=== PATIENT | male | born 1945 | race Caucasian/White ===

== ENCOUNTER 2021-07-14 07:26 | Day surgery (SDC) | payer OTHER, SELFPAY ==
[~2021-07-14] VITALS: Ht 182.9 cm; Wt 83.9 kg
[~2021-07-14 07:26] MED LIST: CEFAZOLIN SOD 2 GM in D5W 50 ML IV ONE
[2021-07-14] MEDS ORDERED: PHENYLEPHRINE HCL 10 MG/ML VIAL (NEOSYNEPHRINE) IV ONE (09:25)
[2021-07-14] MEDS ORDERED: BUPIVACAINE /EPINEPHRINE/PF 0.5% 30 ML VIAL INJ ONE (09:25)
[2021-07-14] MEDS ORDERED: ETOMIDATE 20 MG/ 10 ML VIAL (AMIDATE) IVP ONE (09:25)
[2021-07-14] MEDS ORDERED: SEVOFLURANE 15 MIN GAS INH ONE (09:25)
[2021-07-14] MEDS ORDERED: ePHEDrine sulfate 50 MG/ML VIAL IVP ONE (09:25)
[2021-07-14] MEDS ORDERED: GLYCOPYRROLATE 0.2 MG/ML VIAL IJ ONE (09:25)
[2021-07-14] MEDS ORDERED: HYDROmorphone 2 MG TAB PO ONE (09:25)
[2021-07-14] MEDS ORDERED: CEFAZOLIN 1 GM IVPB PREMIX 50 ML IV ONE (09:25)
[2021-07-14] MEDS ORDERED: fentaNYL CITRATE 250 MCG/5 ML AMP IV ONE (09:25)
[2021-07-14] MEDS ORDERED: ROCURONIUM BROMIDE 10 MG/ML (ZEMURON) IV ONE (09:25)
[2021-07-14] MEDS ORDERED: NS IRRIG SOLN 1000 ML IR ONE (09:25)
[2021-07-14] MEDS ORDERED: WATER FOR IRRIGATION,STERILE 1,000 ML IRRIG.SOLN IR ONE (09:25)
[2021-07-14] MEDS ORDERED: LR 1,000 ML IV.SOLN IV ONE (09:25)
[2021-07-14] MEDS ORDERED: METOCLOPRAMIDE HCL 10 MG/2 ML VIAL IVP ONE (09:25)
[2021-07-14] MEDS ORDERED: LIDOCAINE MPF 2% 5mL VIAL INJ ONE (09:25)
[2021-07-14] MEDS ORDERED: ONDANSETRON HCL 4 MG/2 ML VIAL IVP ONE ×2 (09:25→17:30)
[2021-07-14] MEDS ORDERED: HYDROmorphone 1 MG/ML INJ. CARTRIDGE IVP PRN (10:30)
[2021-07-14] MEDS ORDERED: ONDANSETRON HCL 4 MG/2 ML VIAL IVP PRN (10:30)
[2021-07-14] MEDS ORDERED: LR 1,000 ML IV SCH (10:30)
[2021-07-14] MEDS ORDERED: HYDROmorphone 2 MG/ML VIAL IVP PRN (10:30)
[2021-07-14] MEDS ORDERED: BUPIVACAINE LIPOSOME/PF 266 MG/20 ML VIAL INFIL ONE (12:44)
[2021-07-14 16:37] VITALS: BP_SYST 124
[2021-07-14] MEDS ORDERED: ONDANSETRON HCL 4 MG/2 ML VIAL ONE (17:26)
== END 2021-07-14 18:15 | disposition home or self-care (01) ==
LOC: SDS 07:26 → SMU 07:31 → SDS 18:15
PROVIDERS: ATTEND Surgery
DX: K40.91 Unilateral inguinal hernia, without obstruction or gangrene, recurrent (principal); K42.9 Umbilical hernia without obstruction or gangrene; K21.9 Gastro-esophageal reflux disease without esophagitis; Z79.899 Other long term (current) drug therapy; Z20.822 Contact with and (suspected) exposure to COVID-19
CPT/HCPCS: 49585; 49651; 88302; 93005; C1727; C1781 ×2; C9290; J0690 ×2; J2001; J2370; J2405; J2765; J3010; J3490 ×3; J7060; J7120; U0003